=== PATIENT | male | born 1965 | race Caucasian/White ===

== ENCOUNTER 2019-08-17 09:18 | Emergency (ER) | payer BC, SELFPAY ==
[2019-08-17 09:19] VITALS: BP 140/77; PULSE 81; RESP 18; TEMP 36.6; O2SAT 100; BMI 32.2
--- NOTE | 2019-08-17 09:28 | ED.VIS.EYE ---
History of Present Illness Chief Complaint: Eye Problem Detail of Chief Complaint: Blood left eye Informant: Patient Location: Left Eye Onset: Today Context: Sudden Onset Timing: Continuous Current Severity: Moderate Maximum Severity: Moderate Worsened by: Nothing Relieved by: Nothing Associated Symptoms - Eyes: - - There are no associated symptoms. Unable to\any entry History of injury: No Visual correction: None Narrative: Patient is a healthy 54-year-old male on no antiplatelet or anticoagulant who presents with spontaneous subconjunctival hemorrhage left eye. Patient does have history of obstructive sleep apnea. He states he is compliant with his mask. He does not recall have any difficulty with the mask/device last evening. He noted no problems this morning. He states he was driving to bring his coffee. His eye began to water. He noted that he had significant amount of blood. He denies bruising easily or breathing problems. He denies dark-colored urine or blood in his urine. He denies maroon or more black stool. There is no history of trauma. He denies night sweats or weight loss. There is no history of drinking. Prior similar symptoms: No Recent Illness/Hospitalization: No - Past Medical History (1) No significant past medical history Status: Acute Past Medical History - Allergies and Home Meds Allergies/Adverse Reactions: Allergies No Known Allergies Allergy (Verified 08/17/19 09:21) Primary Care Physician: Mani Mark DO [Primary Care Provider] - Prior records reviewed: No - Are no old records for review Past Medical History: None Lives: Spouse/ Significant Other Smoking Status: Never smoker Alcohol: Rare Drugs: None Review of Systems General: Denies: Chills, Fever, Malaise, Subjective, Sweats, Weight loss Eyes: Reports: - - Subconjunctival hemorrhage left eye. Denies: Visual changes - bilaterally, Blurred Vision - bilaterally, Diplopia Gastrointestinal: Denies: Nausea, Melena, Hematochezia Genitourinary: Denies: Frequency Skin: Denies: Rash, Wounds Hematologic: Denies: Easy bruising, Easy bleeding Physical Exam Visual Acuity: right: 20/20, bilateral: 20/30 Visual Acuity: Uncorrected Eyelid: Normal inspection, - Right Conjunctiva/Sclera: Normal inspection, No foreign body, No erythema Left Conjunctiva/Sclera: No foreign body, No erythema, Subconjunctival hemorrhage - 100% Right Cornea: Normal inspection, No foreign body, No abrasion Left Cornea: Normal inspection, No foreign body, No abrasion Extraocular Motion: Normal exam, No pain, No palsy, No nystagmus Pupils: Normal accomodation, PERRL Right pupil size in mm: 3 Left pupil size in mm: 3 Anterior chamber: Normal exam Vital Signs/Narrative: Vital Signs Temp Pulse Resp BP Pulse Ox 08/17/19 09:19 97.9 F 81 18 140/77 H 100 Inital Vital Signs reviewed: Yes General: Well nourished, Well developed Head: Normocephalic, Atraumatic ENT: Moist mucous membranes, No rhinorrhea Neck: Supple, Nontender, No lymphadenopathy, No JVD Cardiovascular: Regular rate, Regular rhythm Respiratory: No distress Skin: Normal color, No rash, No Trauma. Negative for: Cyanosis, Diaphoresis, Jaundice Neurological: Alert, Oriented x3, Cranial nerves II-XII grossly intact, Normal Strength, Normal Sensation Psychological: Normal affect Diagnostic/Tx/Re-eval Laboratory Results 08/17/19 08/17/19 09:35 09:35 WBC 5.6 RBC 5.37 Hgb 16.0 Hct 47.8 MCV 89.0 MCH 29.8 MCHC 33.5 RDW Std Deviation 42.3 RDW Coeff of Joe 12.9 Plt Count 218 MPV 9.8 Immature Gran % (Auto) 0.200 Neut % (Auto) 57.6 Lymph % (Auto) 29.8 [place] % (Auto) 7.2 Eos % (Auto) 4.5 Baso % (Auto) 0.7 Absolute Neuts (auto) 3.2 Absolute Lymphs (auto) 1.66 Nucleated RBC % 0 PT 13.2 INR 1.0 APTT 31.1 CBC, PT/INR and PTT are normal. Dr. Jose Khoury on-call for ophthalmology was paged to discuss case and determine when patient should follow-up. - Medical Decision Making CBC was obtained to assess H&H and platelet count. PT/INR and PTT were obtained to evaluate for coagulopathy. Since there is no history of trauma or sneezing or coughing will obtain appropriate blood work to assess for coagulopathy. Case was discussed with Dr. Blayne Buenrostro. He requested erythromycin ointment to be applied especially at bedtime. He requested the patient call the office tomorrow to be seen tomorrow. ED Disposition - Plan for ED Patient: Disposition: Home or Assisted Living Diagnosis: Subconjunctival hematoma Instructions: Subconjunctival Hemorrhage Prescriptions: Erythromycin Ophthalmic 1 applic LEFT EYE TID #1 opth.tube Prescription Printed Referrals: Mani Mark DO [Primary Care Provider] - Blayne Buenrostro MD [STAFF PHYSICIAN] - 1 Day for another exam Additional Instructions: Contact office to be seen later tomorrow.
[2019-08-17 09:47] LABS: Absolute Lymphocyte Count 1.66 X10^3/uL (0.83-4.51); Absolute Neutrophil Count 3.2 X10^3/uL (2.0-7.7); Basophil# 0.04 X10^3/uL; Basophil% 0.7 % (0-1); Eosinophil# 0.25 X10^3/uL; Eosinophils% 4.5 % (0-5); Hematocrit 47.8 % (40-54); Lymphocyte # 1.66 X10^3/ul (4.0); Lymphocyte % 29.8 % (19-41); Mean Corp Hgb Conc 33.5 g/dL (32-36); Mean Corpuscular Hgb 29.8 pg (27.0-32.0); Mean Platelet Vol. 9.8 fl (6.2-12.0); Monocyte% 7.2 % (0-10); NRBC Flagged by Analyzer 0 % (0-5); Neutrophil # 3.21 X10^3/uL (2.7-7.7); Neutrophil % 57.6 % (47-70); Platelet Count 218 K/mm3 (150-450); RBC Distribution Width CV 12.9 % (11.6-14.6); RBC Distribution Width SD 42.3 fl (35.1-43.9); Red Blood Count 5.37 M/mm3 (4.6-6.2); White Blood Count 5.6 K/mm3 (4.4-11.0)
[2019-08-17 09:55] LABS: Prothrombin Time (Protime)PT. 13.2 SECONDS (11.7-14.9)
[2019-08-17 09:56] LABS: Partial Thromboplast Time 31.1 Seconds (24.1-36.2)
[2019-08-17 10:44] VITALS: RESP 16
--- NOTE | 2019-08-17 10:45 | ED.RN ---
REVIEWED D/C INSTRUCTIONS, FOLLOW UP CARE, PRESCRIPTION, AND S/S THAT WOULD WARRANT A RETURN TO THE ED WITH PT. PT VERBALIZED AN UNDERSTANDING AND DENIES FURTHER QUESTIONS FOR THIS RN. PT SKIN WARM/DRY, RESP EVEN AND UNLABORED, PT A&O X 3, NO DISTRESS NOTED. PT AMBULATED OUT OF ED, GAIT STEADY.
== END 2019-08-17 10:46 | disposition home or self-care (01) ==
PROVIDERS: Emergency Provider Emergency Medicine; Family Provider Family Medicine; PCP Family Medicine
DX: H11.32 Conjunctival hemorrhage, left eye (principal); G47.33 Obstructive sleep apnea (adult) (pediatric)
CPT/HCPCS: 85025; 85610; 85730; 99283; A4216

== ENCOUNTER 2021-12-11 09:17 | Outpatient (CLI) | payer BC, SELFPAY | END 2021-12-11 23:59 | disposition home or self-care (01) | PROVIDERS: PCP Family Medicine; Referring Provider Family Medicine; Visit Provider Family Medicine | DX: R00.2 Palpitations (principal) | CPT/HCPCS: 93225; 93226 ==

== ENCOUNTER → 2023-12-30 | Outpatient (CLI) | payer OTHER, SELFPAY ==
[2023-12-30 18:13] LABS: Erythrocyte Sedimentation Rate 6 mm/hr (0-20)
[2023-12-30 18:20] LABS: CRP < 2.90 mg/L (0.0-3.0); Uric Acid 4.5 mg/dL (3.5-7.2)
[2024-01-06 10:09] LABS: Clam <0.10 kU/L (Class 0); Codfish <0.10 kU/L (Class 0); Corn <0.10 kU/L (Class 0); Milk (Cow) 0.56 kU/L (Class II); Peanut <0.10 kU/L (Class 0); SCALLOP <0.10 kU/L (Class 0); SESAME SEED <0.10 kU/L (Class 0); Shrimp 0.67 kU/L (Class II); Soybean <0.10 kU/L (Class 0); Walnut, (Food) <0.10 kU/L (Class 0); Wheat <0.10 kU/L (Class 0)
== END | disposition home or self-care (01) ==
PROVIDERS: PCP Family Medicine; Referring Provider Family Medicine; Visit Provider Family Medicine
DX: M10.9 Gout, unspecified (principal); T78.3XXA Angioneurotic edema, initial encounter
CPT/HCPCS: 36415; 84550; 85652; 86003; 86140

== ENCOUNTER → 2024-06-02 | Outpatient (CLI) | payer OTHER, SELFPAY ==
[2024-06-07 15:08] LABS: Testosterone, % Free 3.96 % (1.50-4.20); Testosterone, Free 13.62 ng/dL (5.00-21.00); Testosterone, Total 344 ng/dL (264-916)
== END | disposition home or self-care (01) ==
LOC: MTLAB 10:28
PROVIDERS: PCP Family Medicine; Referring Provider Family Medicine; Visit Provider Family Medicine
DX: R53.83 Other fatigue (principal)
CPT/HCPCS: 36415; 84402; 84403

== ENCOUNTER → 2024-09-22 | Outpatient (CLI) | payer OTHER, SELFPAY ==
--- NOTE | 2024-09-22 09:02 | RAD_ITS ---
INDICATION: R UPPER GLUTEAL AND RIGHT LEG PAIN, ASSES FOR LUMBAR DISEASE EXAMINATION/TECHNIQUE: X-RAY - XR Spine Lumbar Min 4 Views COMPARISON: No relevant prior comparison study available FINDINGS: VERTEBRAE: Preserved vertebral body height. No fracture. No spondylolisthesis. Preservation of the normal lumbar lordosis. Mild lower lumbar facet arthropathy. DISCS: Mild disc space narrowing at L5-S1. Small endplate osteophytes throughout. INCLUDED ABDOMEN: Included bowel gas pattern is non-obstructive. RAD/L/S Spine Min 4 Views IMPRESSION: No evidence of lumbar spinal fracture or spondylolisthesis. Mild degenerative changes. Electronically Signed: Ramón English MD at 23:25 EST ,
== END | disposition home or self-care (01) ==
LOC: MTRAD 09:00
PROVIDERS: PCP Family Medicine; Referring Provider Family Medicine; Visit Provider Family Medicine
DX: M79.604 Pain in right leg (principal)
CPT/HCPCS: 72110

== ENCOUNTER 2024-10-28 10:30 | Outpatient (RCR) | payer OTHER, SELFPAY ==
--- NOTE | 2024-10-05 11:59 | HP.PTEVAL_ITS ---
Patient's Visit Information Visit Information Visit Information: RANCHO MARIN is a 59 year old M referred to Physical Therapy by Dr. Mani Mark DO with a diagnosis of R hip and LB strain.. Date of Evaluation: 10/05/24 Physical Therapist: Art Shoemaker, DPT, OCS, CSCS Visit Plan Frequency: 2x /Week Duration: 4-6 Weeks Plan: 2x/week for 3-6 weeks for... IE: HEP with HO SKC 10x, pelvic tilt 10x, trunk rotation 10x, find NS in every stand and hold as able. Treat with R hip rollout posteriorly, then NS strength mat to stand, focus on NS with funciton. Stretch priiformmis, ITB, HS and quad to HEP. Subjective Subjective: Sent over with R hip and leg pain going on for 2-3 months, chripractic treatment has helped temporarily. X rays: normal. 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 can't golf but it is painful in R LE. Basic ADLs: dress and bathroom I. hard to stand long, pretty comfortable when sitting. Now it is painfuil at night and wakes him up to toss and turn. Lying on L side is best position. Has had massage therapy 1x and stretching, Massage seems to help for 30 minutes or so. Stretches at home SKC, back strength exercises prone, piriformis stretch 15 sec.Lunge FW stretch Last couple days better as he is resting as he has been off work for a few days. No numbness or tingling, feels like cramps. No back pain Pain R buttock adn into leg: Pain Intensity (Out of 10): 0 Pain Intensity Range: 0 and 8 Comment: if he does too much in shop Objective Objective: Walks stiff but safe and I into PT. [facility] [place] chair and bed I. Flex limited HS at -25, ITB tight, psoas and quad min tight, reflexes 0/3 patella adn achilles B tender R posterior hip mm minimally. Sensation B LE WNL to gross light touch B Strength LE knee and ankles 4+, hips 4- abd and ext, and flexion 3+ with contralateral rotation. PA pressure not overly tender. Lying supine is painful in back. Lumbar extension reproduces back symptoms into R hip, not leg. repeated PPPU= more stiff. Balance/Special Test Scores Lower Extremity Functional Score: 39 Goals Goal 1:: Walk 600 feet without leg pain Goal Time Frame: 4-6 Weeks Goal 2:: I in maintaining NS position without cueing. Goal Time Frame: 4-6 Weeks Goal 3:: LEFS score 50 Goal Time Frame: 4-6 Weeks Goal 4:: Full LB ROM without pain. Goal Time Frame: 4-6 Weeks Goal 5:: ready to golf Goal Time Frame: 4-6 Weeks Rehabilitation Potential Physical Therapy Diagnosis: soft tissue and lb rom limitation limiting comfortable function. Rehabilitation Potential: Good Anticipated Interventions Patient/Client Instruction: Educate patient on: Condition and Plan of Care For the Purpose of:: To increase ROM, To improve nutrient delivery to tissue, To improve muscle performance and motor function and To increase tolerance to activity/condition/position Therapeutic Exercise to Include: Strength training, Postural training, Flexibilty training, Passive ROM and Active ROM For the Purpose of:: To increase ROM, To improve nutrient delivery to tissue, To improve muscle performance and motor function, To increase tolerance to activity/condition/position and To increase flexibility/ROM Manual Therapy Techniques to Include: Mobilization, Passive ROM and Soft tissue mobilization For the Purpose of:: To increase ROM, To increase oxygenation perfusion, To improve ability to perform ADL's, To increase tolerance to activity/condition/position and To improve gait and locomotor functions Thermo therapy (hot pack): Yes For the Purpose of:: To improve nutrient delivery to tissue Text: Thank you for the opportunity to evaluate your patient. For Medicare and Medicare HMO plans, please review the plan of care and approve it. It will need to be FAXED BACK to us at [phone] for Medicare purposes. For Medicare only, by signing this I certify the plan of care. Please let me know if there are questions or concerns regarding this plan of care. Physician Signature: Date:
--- NOTE | 2024-10-28 11:30 | HP.PTREVAL_ITS ---
Re-Evaluation Intro: Dr. Mani Mark, DO, It has been my pleasure to treat RANCHO MARIN over the last 7 visits for R hip and LB strain.. Please see the progress note below for an update on the physical therapy plan of care! Subjective Subjective: Turned a corner this weekend. NO more pain except one slight spot on R calf muscle. Golfed in simulator for two hours sweating and no problem. Sleeping on back 4-5 nights without pain. Seen massage therapist, doing PT ex 2x/day, chriopractic. Objective Objective/Function: L/S aROM without pain today and min deficits ext, Min flexion and HS tight but not painful. Walks I and moves confidently even bending. Much improved. Plan Plan Plan: f/u 3 weeks for check and d/c, pt to call prior if pain returns. Will continue HEP stretches psoas and HS, back ROM, NS focus and mat strength at home. Balance/Gait/Functional tests Balance/Special Test Scores Lower Extremity Functional Score: 63 Goals Goals Goal 1:: Walk 600 feet without leg pain Goal Time Frame: 4-6 Weeks Goal Progress: Goal Met Goal 2:: I in maintaining NS position without cueing. Goal Time Frame: 4-6 Weeks Goal Progress: Goal Met Goal 3:: LEFS score 50 Goal Time Frame: 4-6 Weeks Goal Progress: Goal Met Goal 4:: Full LB ROM without pain. Goal Time Frame: 4-6 Weeks Goal 5:: ready to golf Goal Time Frame: 4-6 Weeks Goal Progress: simulator Anticipated Interventions Anticipated Interventions Patient/Client Instruction: Educate patient on: Condition and Plan of Care For the Purpose of:: To increase ROM, To improve nutrient delivery to tissue, To improve muscle performance and motor function and To increase tolerance to activity/condition/position Therapeutic Exercise to Include: Strength training, Postural training, Flexibi lty training, Passive ROM and Active ROM For the Purpose of:: To increase ROM, To improve nutrient delivery to tissue, To improve muscle performance and motor function, To increase tolerance to activity/condition/position and To increase flexibility/ROM Manual Therapy Techniques to Include: Mobilization, Passive ROM and Soft tissue mobilization For the Purpose of:: To increase ROM, To increase oxygenation perfusion, To improve ability to perform ADL's, To increase tolerance to activity/condition/position and To improve gait and locomotor functions Thermo therapy (hot pack): Yes For the Purpose of:: To improve nutrient delivery to tissue Re-Evaluation Ending Re-evaluation ending: Please do not hesitate to contact me at [phone] by phone or if you have questions or concerns regarding this new plan of care! Sincerely, Art Shoemaker, DPT, OCS, CSCS
--- NOTE | 2024-11-15 10:53 | HP.PT.NRP ---
Patient Information Patient Information: RANCHO MARIN was seen in my office for initial evaluation on 10/05/24. The following Plan of Care was established for this patient: POC Established Initial Frequency: 2x /Week Initial Duration: 4-6 Weeks Anticipated Interventions Patient/Client Instruction: Educate patient on: Condition and Plan of Care For the Purpose of:: To increase ROM, To improve nutrient delivery to tissue, To improve muscle performance and motor function and To increase tolerance to activity/condition/position Therapeutic Exercise to Include: Strength training, Postural training, Flexibilty training, Passive ROM and Active ROM For the Purpose of:: To increase ROM, To improve nutrient delivery to tissue, To improve muscle performance and motor function, To increase tolerance to activity/condition/position and To increase flexibility/ROM Manual Therapy Techniques to Include: Mobilization, Passive ROM and Soft tissue mobilization For the Purpose of:: To increase ROM, To increase oxygenation perfusion, To improve ability to perform ADL's, To increase tolerance to activity/condition/position and To improve gait and locomotor functions Thermo therapy (hot pack): Yes For the Purpose of:: To improve nutrient delivery to tissue Last Seen Last Seen: This patient was last seen in our office 10/28/24. Pertinent comments regarding their Physical therapy will appear below: Pt seen 7 visits of POC and was 90% better. He was to f/u 2 weeks later but cancelled stating he was doing well. i will discontinue him from my care at this point. At this point I will be discontinuing this patient from physical therapy. I would be happy to see this patient again in the future if found appropriate by the physician. Thank you! Art Shoemaker, DPT, OCS, CSCS Balance/Gait/Functional tests Balance/Special Test Scores Lower Extremity Functional Score: 63
== END 2024-10-28 19:00 | disposition home or self-care (01) ==
LOC: PT 10:30
PROVIDERS: PCP Family Medicine; Referring Provider Family Medicine; Visit Provider Family Medicine
DX: S76.011D Strain of muscle, fascia and tendon of right hip, subsequent encounter (principal); S76.311D Strain of muscle, fascia and tendon of the posterior muscle group at thigh level, right thigh, subsequent encounter; S86.811D Strain of other muscle(s) and tendon(s) at lower leg level, right leg, subsequent encounter
CPT/HCPCS: 97110; 97161; 97530